=== PATIENT | female | born 1965 | race Caucasian/White ===

== ENCOUNTER 2020-08-07 22:25 | Emergency (ER) | payer OTHER ==
[~2020-08-07] VITALS: Ht 162.6 cm; Wt 72.6 kg
[2020-08-08] MEDS ORDERED: VITAMIN C WIT1000 MG PO (01:55)
[2020-08-08] MEDS ORDERED: ACETAMINOPHEN650 M2 PO (01:55)
[2020-08-08] MEDS ORDERED: GUAIFENESIN400 MG PO (01:55)
== END 2020-08-08 02:41 | disposition home or self-care (01) ==
LOC: ER 22:25
DX: J06.9 Acute upper respiratory infection, unspecified (principal); B34.9 Viral infection, unspecified; Z03.818 Encounter for observation for suspected exposure to other biological agents ruled out